=== PATIENT | male | born 1965 | race Hispanic/Latino ===

== ENCOUNTER 2025-07-03 10:49 | Emergency (ER) | payer BC, SELFPAY ==
[2025-07-03] VITALS (9 sets, daily range): BP systolic 117–140; BP diastolic 73–91; BMI 24.6
--- NOTE | 2025-07-03 12:23 | ED.GENMED ---
History of Present Illness
General
Chief Complaint: Abdominal Symptoms
Source: patient and spouse
Time Seen by Provider: 07/03/25 12:05
History of Present Illness
History of Present Illness:
This patient is a 60-year-old male that presents emergency department with a variety of different symptoms that for started last Tuesday. He first noticed that he had chills, and felt like his body temperature was lower than usual. He also noticed
at that time that he would have increased belching after eating. This was associated with 'body aches' that he noticed in his upper back. On Tuesday he started taking Tylenol [id number] which did help with symptoms. He saw his doctor on
and was sent to get labs including a Lyme test but he does not know any of those results. He states that sometime between and Tuesday the achiness that he was having in his upper back became more like a feeling of 'sunburn',
although no sunburn or skin changes noted. He also states that he was starting to feel constipated so he started taking Colace on Tuesday. He describes having a normal bowel movement this morning without black stool or blood. He notes a feeling of
a 'pulled muscle' feeling in the epigastric and right upper quadrant area that comes and goes he does not have this currently. The burning in his upper back is now currently not present as well. However, he is particularly concerned about episodes
repeated belching that seems to be precipitated by eating. Patient is currently not belching. He denies chest pain, dyspnea, nausea, vomiting, urinary symptoms, or other complaints.
Past History
Past History
ED Past Medical History: Other ('Arrhythmia' but cannot be more specific and is not prescribed medication for)
ED Past Surgical History: None
Social History
Tobacco: Non-smoker
Alcohol: Occasional
Drug: None
Personal:
Living: with family
Phy Exam
Physical Exam
Physical Exam:
GENERAL: Alert , in no apparent distress
EYE: pupils equal and reactive
NECK: Supple, no significant adenopathy.
ENT: o/p clr, mmm.
CARDIAC: Regular rate and rhythm .
LUNGS: Clear breath sounds bilaterally, no acute respiratory distress, no wheezes/rales/rhonchi
ABDOMEN: Soft, without focal tenderness, no r/g, no cvat
NEUROLOGICAL: Alert and oriented, no focal neuro deficits
SKIN: Warm and dry, skin intact.
MUSCULOSKELETAL: No edema, well perfused.
PSYCH: Normal and appropriate interaction.
Course
Orders/Labs/Results
Orders:
Orders
07/03/25 12:22
Cardiac Monitoring- Treatment ONCE
US Abdomen Complete/Upper Urgent
Comment:
Reason For Exam: belching, abd pain
07/03/25 12:23
Electrocardiogram (*1) Stat
Reason for Study: Abdominal Pain
EKG- Treatment ONCE
07/03/25 12:37
Complete Blood Count/No Diff Urgent
Comprehensive Metabolic Panel Urgent
Lipase Urgent
Troponin I Urgent
Urinalysis Reflex To Culture Urgent
Date Specimen was Collected: 07/03/25
Time Specimen was Collected: 12:26
Urine Microscopic Reflex Cult Urgent
Abnormal Lab Results
07/03/25
12:37
WBC 4.7 L 10^3/uL
(4.8-10.8)
RBC 4.60 L 10^6/uL
(4.70-6.10)
MCH 31.7 H pg
(27.0-31.0)
BUN 26 H mg/dl
(9-20)
Ur Occult Blood Reflex 1+ A
(Negative)
07/03/25 12:37
07/03/25 12:37
Vital Signs
Initial and Last Documented VS:
Initial Vital Signs
Temp Pulse Resp BP Pulse Ox
98.0 F 75 18 140/85 98
07/03/25 11:00 07/03/25 11:00 07/03/25 11:00 07/03/25 11:00 07/03/25 11:00
Last Documented Vital Signs
Temp Pulse Resp BP Pulse Ox
98.0 F 56 16 128/87 97
07/03/25 11:00 07/03/25 16:11 07/03/25 16:11 07/03/25 16:56 07/03/25 16:57
*Pulse Oximetry
SaO2: 97
Oxygen Mode of Delivery: Room air
Patient hypoxic: no
*Critical Care Note
Total Time (30-74mins, 75-104mins- exclusive of procedures): Not Applicable
Update Note
Update Note:
Patient presents to the Emergency Department with ____excessive belching
Number and Complexity of Problems Addressed at the Encounter
� Chronic conditions affecting care:
� Acute Exacerbation and/or Progression of Chronic Illness:
� Differential Diagnosis includes: But not limited to gallstones, cholecystitis, pancreatitis, gastritis, reflux, etc. etc.
Amount and/or Complexity of Data to be Reviewed and Analyzed
� I performed an independent evaluation of and my interpretation is:
EKG: EKG read by me, sinus bradycardia, no acute ischemia
CT:
Xrays:
Laboratory Studies: Unremarkable
Other: Read by radiology NAD
� Review of other/old records reveals:
� Clinical information was obtained by an independent historian: who is at bedside and offers a diary of his symptoms over the last week or so
� Prescriptions/Medications Considered but not given:
� Further testing considered but not performed:
Risk of Complications and/or Morbidity or Mortality of Patient Management
� Social determinants of health affecting care:
� Discussion with other providers (PCP, Hospitalists, Consultants, etc):
� Escalation of care including admission/observation vs risk of discharge considered: Long discussion with patient, no specific etiology for his symptoms noted today however no 'red flag' findings in history or physical to
suggest more worrisome process. Symptoms may be consistent with gastritis or reflux, did suggest to begin an antacid/PPI in anticipation of GI follow-up. He will first try diet modification. Discussed with him importance of follow-up and reasons
return to the ER.
ED Attending Note
-
Portions of this chart may have been created with voice recognition software.� Occasional wrong word or��sound alike� substitutions may have occurred due to the inherent limitations of voice recognition software.
Discharge Plan
Departure
Patient Disposition: Home (Routine Discharge)
Date of Disposition: 07/03/25
Time of Disposition: 17:14
Patient with high blood pressure during this ER visit?: Yes
Condition: Good
Discharge Problem:
Belching
Instructions: Gas and bloating, Abdominal Pain, BLOOD PRESSURE
Referrals:
Cindy Ely MD [Active, Gastroenterology] - Next open appointment
Luz Hurtado PA-C [Family Provider, Family Practice]
Activity Restrictions/Additional Instructions:
PLEASE SEE THE GI DOCTOR IN FOLLOW-UP. IF YOU DEVELOP CHEST PAIN, SHORTNESS OF BREATH, PERSISTENT NEW OR WORSENING ABDOMINAL PAIN, FEVER, REPEATED VOMITING, OR OTHER WORRISOME SIGNS, PLEASE RETURN TO THE ER IMMEDIATELY!
Interventions
Interventions:
*Risk Screen - Suicide Last Done: 07/03/25 11:00
*General Assessment Last Done: 07/03/25 11:00
*Neglect/Abuse Screening Last Done: 07/03/25 11:35
*ED- Fall Risk Assessment Last Done: 07/03/25 11:00
*ED COVID-19 Vaccine History Last Done: 07/03/25 11:00
*Nursing Disposition Last Done: 07/03/25 17:18
MW-Xgfhxt-Vmwouhwrzf Assessment Last Done: 07/03/25 11:35
Discharge Date and Time
Discharge Date/Time: 07/03/25 17:18
Print Language: SERBIAN
[2025-07-03 12:48] LABS: Hematocrit 41.1 % (39.0-52.0); Hemoglobin 14.6 g/dL (13.0-18.0); Mean Corp Hgb Conc. 35.5 g/dL (33.0-37.0); Mean Corpuscular Volume 89.3 fL (80.0-94.0); Platelet Count 209 10^3/uL (130-400); Red Cell Dist. Width 12.1 % (11.5-14.5)
[2025-07-03 12:58] LABS: Urine Character Clear (Clear)
[2025-07-03 13:07] LABS: ALT (SGPT) 17 U/L (0-50); AST (SGOT) 25 U/L (17-59); Albumin 4.5 g/dl (3.5-5.0); Alkaline Phosphatase 43 U/L (38-126); Blood Urea Nitrogen 26 mg/dl (9-20); Calcium 9.1 mg/dl (8.4-10.2); Carbon Dioxide 27 mmol/L (22-30); Chloride 105 mmol/L (98-107); Estimated Creatinine Clearance 77 ml/min; Glucose 85 mg/dl (70-99); Lipase 79 U/L (23-300); Potassium 4.6 mmol/L (3.5-5.1); Sodium 139 mmol/L (135-145); Total Protein 7.2 g/dl (6.3-8.2); eGFR > 60.00
[2025-07-03 13:17] LABS: Urine Red Blood Cell 0-2 /HPF (0-2); Urine Squamous Cell 0-2 /LPF (Few); Urine White Cell 0-2 /HPF (0-5)
[2025-07-03 13:18] LABS: Troponin I < 0.012 ng/ml
== END 2025-07-03 17:18 | disposition home or self-care (01) ==
LOC: EMR 10:49
PROVIDERS: EMERGENCY PHYSICIAN Emergency Medicine; FAMILY PHYSICIAN Family Medicine
DX: R14.2 Eructation (principal); R68.83 Chills (without fever); R00.1 Bradycardia, unspecified; M54.50 Low back pain, unspecified
CPT/HCPCS: 99284; 76700; 80053; 81003; 81015; 83690; 84484; 85027; 93005

== ENCOUNTER 2025-09-08 22:51 | Emergency (ER) | payer BC, SELFPAY ==
[2025-09-08 22:56] VITALS: BP 148/71
--- NOTE | 2025-09-08 23:11 | ED.GENMED ---
Addendum entered and electronically signed by Geeta Gao NP 09/09/25 09:01:
8:30 a.m. Pt came to desk stating pt is having chest pain. On exam: pt states it is 'dull sensation' pointing to mid lateral left ribs, and it is 'going away.' Non radiating, no associated symptoms. EKG unchanged from last. Pain gone after 15
minutes .
Original Note:
History of Present Illness
General
Chief Complaint: Psychiatric Problem
Source: patient
Exam Limitations: none
Time Seen by Provider: 09/08/25 23:08
Nursing documentation reviewed up to this point in time: agreed with
History of Present Illness
History of Present Illness:
This is a 62-year-old male with past medical history of hyperlipidemia who presents to the ER today with concerns of increasing feelings of guilt, anxiety, and depression over the past few days. He reports that a few days ago, there was an incident
involving home renovation in his house. He reports that he was undoing the floorboard and underneath the floorboard, the material tested positive for asbestos. He is very concerned about asbestos fibers being released into the air and he is
concerned that he exposed his family in the environment to these fibers. He has trouble forming full sentences and his reports that he has been having overwhelming guilt regarding this and he repeatedly states he that he is a evil and horrible
person. He has not been sleeping the past few nights. This has been compounded by memories of a past relationship which also was associated with poorly performed home renovations. reports that patient is deeply environmentally conscious and
the thought of the fibers possibly going down into the environment is very disturbing for him. They did have a professional come out and look at the house and they said that asbestos exposure should not be a concern. He feels that he is not worthy
of receiving treatment. When asked about suicidal ideation, he does not directly answer my question and states 'I am not worthy of living in this life.' He has no homicidal ideations. He denies recent head or neck trauma. He does not take any
medications. He denies abdominal pain, chest pain, shortness of breath, nausea or vomiting. He denies illcit drug use.
Past History
Past History
ED Past Medical History: Other ('Arrhythmia' but cannot be more specific and is not prescribed medication for)
ED Past Surgical History: None
Social History
Tobacco: Non-smoker
Alcohol: Occasional
Drug: None
Personal:
Living: with family
Review of Systems
Review of Systems
All Other Systems: ROS reviewed and negative except as documented in HPI and ROS
Phy Exam
General Physical Exam
General Presentation: other (anxious appearing, non-toxic appearing)
General age: appears stated age
General Skin: warm and dry
General Habitus: normal
General Mental: alert
General Hydration: appears well hydrated
ENT Exam
ENT Exam: EOMI
Eye Exam
Eye Exam: PERRL and EOMI
Cardiovascular Exam
Cardiovascular Exam: regular rate/rhythm, no edema and no murmur
Pulmonary Exam
Pulmonary Exam: lungs clear, no respiratory distress, no rales, no crackles, no rhonchi, no wheezing and no cough
Course
Orders/Labs/Results
Orders:
Orders
09/08/25 23:44
Crisis Consult Urgent
Reason for Consult: depression
09/09/25 00:57
Alcohol Urgent
Complete Blood Count/With Diff Urgent
Comprehensive Metabolic Panel Urgent
09/09/25 02:46
Urinalysis Reflex To Culture Urgent
Date Specimen was Collected: 09/09/25
Time Specimen was Collected: 02:38
Urine Drug Abuse Screen Urgent
Date Specimen was Collected: 09/09/25
Time Specimen was Collected: 02:38
Urine Microscopic Reflex Cult Urgent
Abnormal Lab Results
09/09/25 09/09/25
00:57 02:46
MCH 31.7 H pg
(27.0-31.0)
Absolute Monos (auto) 0.8 H 10^3/uL
(0.1-0.6)
Lymphocytes % 17.1 L %
(20.5-51.1)
Glucose 110 H mg/dl
(70-99)
AST 84 H U/L
(17-59)
ALT 74 H U/L
(0-50)
Urine Ketones 2+ A
(Negative)
Ur Occult Blood Reflex 1+ A
(Negative)
Urine RBC 3-6 A /HPF
(0-2)
Urine Albumin (Reflex) 1+ A
(Neg - Trace)
09/09/25 00:57
09/09/25 00:57
Vital Signs
Initial and Last Documented VS:
Initial Vital Signs
Temp Pulse Resp BP Pulse Ox
98.5 F 68 16 148/71 98
09/08/25 22:56 09/08/25 22:56 09/08/25 22:56 09/08/25 22:56 09/08/25 22:56
Last Documented Vital Signs
Temp Pulse Resp BP Pulse Ox
98.5 F 60 14 158/97 97
09/08/25 22:56 09/09/25 03:05 09/09/25 03:05 09/09/25 03:05 09/09/25 03:05
MDM/Problems Addressed
Differential Diagnosis Includes:
ddx include major depressive disorder, generalized anxiety disorder, schizoaffective disorder
MDM/Problems Addressed:
This is a 62-year-old male with past medical history of hyperlipidemia who presents to the ER today with concerns of increasing feelings of guilt, anxiety, and depression over the past few days. He reports that a few days ago, there was an incident
involving home renovation in his house. He reports that he was undoing the floorboard and underneath the floorboard, the material tested positive for asbestos. Since then, he has become increasingly paranoid and has had obsessive thoughts
regarding potentially exposing his family and the environment to his abestos. This has caused him to have passive suicidal thoughts. Recent events have also caused him to experience flash backs from a prior romantic relationship which has been
emotionally distressing to him. His reports that he has had similar thoughts in the past but has previously gotten better on his own.
Patient making a variety of vague statements regarding his life and regarding harming himself. I recieved update from Crisis, patient is agreeable to inpatient treatment. Crisis is requesting blood work and urine drug screen. I reviewed blood work,
AST and ALT mildly elevated but in the setting of no abdominal pain, no jaundice not of any acute concern. Patient will need repeat blood work in the future. Patient medically stable for inpatient psychiatric treatment.
*Pulse Oximetry
SaO2: 98
Oxygen Mode of Delivery: Room air
Patient hypoxic: no
*Critical Care Note
Total Time (30-74mins, 75-104mins- exclusive of procedures): Not Applicable
Data Reviewed
Review of Other/Old Records Reveals: Records (Reviewed ER physician documentation from 07/03/2025 patient seen for chills and bodyaches as well as belching after eating. There is no specific etiology attributed symptoms, may be related to gastritis
or reflux flux) and Discharge Summary (No hospital discharge summary to review, no information in external medical summary to review.)
Source: patient and records
ED Attending Note
-
Portions of this chart may have been created with voice recognition software.� Occasional wrong word or��sound alike� substitutions may have occurred due to the inherent limitations of voice recognition software.
Discharge Plan
Departure
Patient Disposition: Psych Facility
Date of Disposition: 09/09/25
Time of Disposition: 05:42
Patient with high blood pressure during this ER visit?: Yes
Condition: Good
Discharge Problem:
Depression, Paranoia
Instructions: Depression, Adult (DC), BLOOD PRESSURE
Prescriptions:
No Action
No Current Medications
0
Referrals:
UNKNOWN - PT DOES,NOT KNOW [Family Provider]
Activity Restrictions/Additional Instructions:
Your AST and ALT liver function tests are mildly elevated. Please have CMP repeated in 1-2 weeks on an non-urgent basis.
PLEASE RETURN TO THE ER OR LET STAFF AT [facility] KNOW SHOULD YOU DEVELOP ABDOMINAL PAIN, LIGHTHEADEDNESS, DIZZINESS, FEVERS OR CHILLS, BURNING WITH URINATION, CHEST PAIN, SHORTNESS OF BREATH, OR ANY OTHER SIGNS OR SYMPTOMS WORRISOME TO YOU.
Interventions
Interventions:
*Risk Screen - Suicide Last Done: 09/08/25 22:56
*General Assessment Last Done: 09/08/25 22:56
*Neglect/Abuse Screening Last Done: 09/09/25 00:53
*ED- Fall Risk Assessment Last Done: 09/08/25 22:56
*ED COVID-19 Vaccine History Last Done: 09/08/25 22:56
*ED Influenza Vaccine History Last Done: 09/08/25 22:56
ED- Neurological Assessment Last Done: 09/09/25 03:10
ED-Psychological Assessment Last Done: 09/09/25 01:06
ED- Pulmonary Assessment Last Done: 09/09/25 03:10
ED Swallowing Screen Last Done: 09/09/25 01:06
Discharge Date and Time
Print Language: MOLDOVAN
[2025-09-09 00:52] VITALS: BMI 23.3
[2025-09-09 01:02] LABS: Hematocrit 42.8 % (39.0-52.0); Hemoglobin 15.2 g/dL (13.0-18.0); Mean Corp Hgb Conc. 35.5 g/dL (33.0-37.0); Mean Corpuscular Volume 89.4 fL (80.0-94.0); Nucleated Red Blood Cells % 0 % (-); Platelet Count 275 10^3/uL (130-400); Red Cell Dist. Width 12.5 % (11.5-14.5)
[2025-09-09 01:21] LABS: ALT (SGPT) 74 U/L (0-50); AST (SGOT) 84 U/L (17-59); Albumin 4.8 g/dl (3.5-5.0); Alkaline Phosphatase 60 U/L (38-126); Blood Urea Nitrogen 20 mg/dl (9-20); Calcium 9.4 mg/dl (8.4-10.2); Carbon Dioxide 27 mmol/L (22-30); Chloride 104 mmol/L (98-107); Estimated Creatinine Clearance 85 ml/min; Glucose 110 mg/dl (70-99); Potassium 4.2 mmol/L (3.5-5.1); Sodium 138 mmol/L (135-145); Total Protein 7.8 g/dl (6.3-8.2); eGFR > 60.00
[2025-09-09 03:02] VITALS: BP 159/102
[2025-09-09 03:05] VITALS: BP 158/97
[2025-09-09 03:11] LABS: Urine Character Clear (Clear)
[2025-09-09 03:52] LABS: Urine White Cell Cast 0-2 /LPF
[2025-09-09 03:53] LABS: Urine Squamous Cell 0-2 /LPF (Few); Urine White Cell 0-2 /HPF (0-5)
--- NOTE | 2025-09-09 04:36 | EDRN ---
Pt's came out of room and asked about paperwork pt signed when he was in the other room. Crisis called and came over to talk with pt's about her question.
[2025-09-09 08:00] VITALS: BP 140/80
--- NOTE | 2025-09-09 08:57 | ED.GENMED ---
History of Present Illness
General
Chief Complaint: Psychiatric Problem
Time Seen by Provider: 09/08/25 23:08
History of Present Illness
History of Present Illness:
..
Past History
Past History
ED Past Medical History: Other ('Arrhythmia' but cannot be more specific and is not prescribed medication for)
ED Past Surgical History: None
Social History
Tobacco: Non-smoker
Alcohol: Occasional
Drug: None
Personal:
Living: with family
Phy Exam
Physical Exam
Physical Exam:
..
Course
Orders/Labs/Results
Orders:
Orders
09/08/25 23:44
Crisis Consult Urgent
Reason for Consult: depression
09/09/25
Electrocardiogram (*1) Stat
Comment: DONE
09/09/25 00:57
Alcohol Urgent
Complete Blood Count/With Diff Urgent
Comprehensive Metabolic Panel Urgent
09/09/25 02:46
Urinalysis Reflex To Culture Urgent
Date Specimen was Collected: 09/09/25
Time Specimen was Collected: 02:38
Urine Drug Abuse Screen Urgent
Date Specimen was Collected: 09/09/25
Time Specimen was Collected: 02:38
Urine Microscopic Reflex Cult Urgent
Abnormal Lab Results
09/09/25 09/09/25
00:57 02:46
MCH 31.7 H pg
(27.0-31.0)
Absolute Monos (auto) 0.8 H 10^3/uL
(0.1-0.6)
Lymphocytes % 17.1 L %
(20.5-51.1)
Glucose 110 H mg/dl
(70-99)
AST 84 H U/L
(17-59)
ALT 74 H U/L
(0-50)
Urine Ketones 2+ A
(Negative)
Ur Occult Blood Reflex 1+ A
(Negative)
Urine RBC 3-6 A /HPF
(0-2)
Urine Albumin (Reflex) 1+ A
(Neg - Trace)
09/09/25 00:57
09/09/25 00:57
Vital Signs
Initial and Last Documented VS:
Initial Vital Signs
Temp Pulse Resp BP Pulse Ox
98.5 F 68 16 148/71 98
09/08/25 22:56 09/08/25 22:56 09/08/25 22:56 09/08/25 22:56 09/08/25 22:56
Last Documented Vital Signs
Temp Pulse Resp BP Pulse Ox
98.0 F 56 16 140/80 99
09/09/25 08:00 09/09/25 08:00 09/09/25 08:00 09/09/25 08:00 09/09/25 14:37
*Pulse Oximetry
SaO2: 99
Oxygen Mode of Delivery: Room air
Patient hypoxic: no
*Critical Care Note
Total Time (30-74mins, 75-104mins- exclusive of procedures): Not Applicable
ED Attending Note
-
Portions of this chart may have been created with voice recognition software.� Occasional wrong word or��sound alike� substitutions may have occurred due to the inherent limitations of voice recognition software.
Discharge Plan
Departure
Patient Disposition: Psych Facility
Date of Disposition: 09/09/25
Time of Disposition: 05:42
Patient with high blood pressure during this ER visit?: Yes
Condition: Good
Discharge Problem:
Depression, Paranoia
Instructions: Depression, Adult (DC), BLOOD PRESSURE
Prescriptions:
No Action
No Current Medications
0
Referrals:
UNKNOWN - PT DOES,NOT KNOW [Family Provider]
Activity Restrictions/Additional Instructions:
Your AST and ALT liver function tests are mildly elevated. Please have CMP repeated in 1-2 weeks on an non-urgent basis.
PLEASE RETURN TO THE ER OR LET STAFF AT [facility] KNOW SHOULD YOU DEVELOP ABDOMINAL PAIN, LIGHTHEADEDNESS, DIZZINESS, FEVERS OR CHILLS, BURNING WITH URINATION, CHEST PAIN, SHORTNESS OF BREATH, OR ANY OTHER SIGNS OR SYMPTOMS WORRISOME TO YOU.
Interventions
Interventions:
*Risk Screen - Suicide Last Done: 09/08/25 22:56
*General Assessment Last Done: 09/08/25 22:56
*Neglect/Abuse Screening Last Done: 09/09/25 00:53
*ED- Fall Risk Assessment Last Done: 09/08/25 22:56
*ED COVID-19 Vaccine History Last Done: 09/08/25 22:56
*ED Influenza Vaccine History Last Done: 09/08/25 22:56
ED- Neurological Assessment Last Done: 09/09/25 03:10
ED-Psychological Assessment Last Done: 09/09/25 01:06
ED- Pulmonary Assessment Last Done: 09/09/25 03:10
ED Swallowing Screen Last Done: 09/09/25 01:06
Discharge Date and Time
Discharge Date/Time: 09/09/25 09:15
Print Language: ZIMBABWEAN
--- NOTE | 2025-09-09 09:30 | EDRN ---
pt picked up by ambulance ( Acute Care) at 915 am
pt sent to [facility] in [place]
== END 2025-09-09 09:15 ==
LOC: EMR 22:51
PROVIDERS: Physician Assistant; EMERGENCY PHYSICIAN Student in an Organized Health Care Education/Training Program
DX: F22 Delusional disorders (principal); F32.A Depression, unspecified; E78.5 Hyperlipidemia, unspecified
CPT/HCPCS: 99285; 80053; 80306; 81003; 81015; 82077; 85025; 93005